=== PATIENT | female | born 1985 | race Caucasian/White ===

== ENCOUNTER 2016-08-06 18:22 | Emergency (ER) | payer OTHER ==
[~2016-08-06] VITALS: Ht 167.6 cm; Wt 72.7 kg
[~2016-08-06 18:22] MED LIST: AMPH20TA5 PO; KLO5T PO; LURA40TA3 PO; NITR100 PO; OXYC-181 PO; TRAM50TA2 PO
[2016-08-06 18:53] VITALS: BP 127/76; PULSE 85; RESP 18; O2SAT 98
[2016-08-06 19:33] LABS: BASOPHILS % (AUTO) 0.3 % (0-3); EOSINOPHILS % (AUTO) 8.3 % (0-5); MONOCYTES % (AUTO) 5.4 % (4-12); Mean Corpuscular Hemoglobin 28.6 pg (27.0-35.0); Mean Corpuscular Volume 85.7 fL (81-100); NEUTROPHILS % (AUTO) 55.7 % (40-74); Platelet Count 288 bil/L (150-400)
[2016-08-06 20:01] LABS: Magnesium 1.9 mg/dL (1.6-2.6)
[2016-08-06 20:54] LABS: APPEARANCE,URINE CLEAR (CLEAR,HAZY); COLOR,URINE YELLOW (YELLOW); OCCULT BLOOD,URINE LARGE (NEGATIVE); PH,URINE 5.5 (5.0-8.0); UROBILINOGEN,URINE NORMAL (NORMAL)
--- NOTE | 2016-08-06 21:23 | ED.REPORT ---
HPI-Abd Pain F Under 40 Date of Service Aug 06, 2016 ED Provider: Abbe Del Cid MD 31 y/o female with no pertinent hx presents to the ED complaining of abdominal pain after eating, onset 4 weeks ago, which radiates to her sides. Pt saw her PCP for an Ultrasound about a week ago and the result was normal. She also has an appointment with her PCP tomorrow but her pain significantly increased today. She reports she has had intermittent dark stool for about 3 weeks, diarrhea and constipation but denies hematuria and dysuria. Pt reports she is bleeding due to her IUD (Mirena) since last week. She is not taking any iron supplements. Pt has a family hx of cholelithiasis. Nursing Notes Stated Complaint: ABDOMINAL PAIN Chief Complaint: Female Abdominal Pain Nursing Notes Reviewed: Yes Allergies: Coded Allergies: acetaminophen (Verified Allergy, Unknown, 08/06/16) cefaclor (Verified Allergy, Unknown, 08/06/16) hydrocodone bitartrate (Verified Allergy, Unknown, 08/06/16) promethazine HCl (Verified Allergy, Unknown, 08/06/16) Scheduled Amphet Asp/Amphet/D-Amphet (Adderall) 20 Mg Tablet 20 MG PO BIDAC Clonazepam (Clonazepam) 0.5 Mg Tablet 1 TABLET PO TID Lurasidone (Latuda) 40 Mg Tablet 40 MG PO QPM with a meal Nitrofurantoin Monohyd/M-Cryst (MacroBid) 100 Mg Capsule 100 MG PO BID Oxycodone/APAP-Expunged Drug, Do Not Renew! (Percocet 10/325--Expunged Drug, Do Not Renew!) 1 Each Tablet 1 PO QID Scheduled PRN Tramadol (Tramadol) 50 Mg Tablet 50 MG PO QID PRN PRN For Pain General Time Seen by MD: 21:21 Chief Complaint Abdominal pain Hx Obtained From: Patient Arrived By: Walk-in Sudden in Onset?: No Onset Occurred: More than a week ago... (4 weeks) Context of Onset: Eating Symptom Duration: Intermittent Progression since Onset: Intermittent Location: : Abdomen upper Quality: Painful Radiation: : Epigastric Severity: Current: Mild Severity: Maximum: Mild Recent Healthcare: Recent doctor visit Similar Sx Previous: No Past Medical History Past Medical History ADHD Bipolar PTSD. Back pain. Past Surgical History Recent IUD removal Smoking History Never Smoker Social History Alcohol Use: "Social" Drug Use: Denies drug use Other Social History: Good social support Ambulatory Status Independent Review of Systems GI: Reports: Abdominal pain, Constipation, Diarrhea, Hematochezia Female: Reports: Dysuria, Hematuria Complete sys rev & neg: except as marked. Physical Exam Initial Vital Signs Vital Signs (First) Date Time Temp Pulse Resp B/P Pulse Ox O2 Delivery O2 Flow Rate FiO2 08/06/16 18:53 36.3 85 18 127/76 98 Room Air Initial VS: Reviewed, Vital signs normal Head / Eyes: Atraumatic, Normocephalic, PERRL ENT: Mucous membranes moist, Conjunctiva normal, No scleral icterus Neck: Supple, Non-tender, Full range of motion Extremities: Vascular intact, Neuro intact, No swelling, No tenderness Skin: Warm, Dry, No cyanosis Neurologic: Alert, Oriented, Nonfocal Psychiatric: Mood/affect normal, Behavior normal, Normal thought content General/Constitutional: Awake, Alert, No acute distress, Cooperative, Not toxic appearing Respiratory / Chest: Breath sounds NL, Breath sounds = bilat, No respiratory distress, No rales, No rhonchi, No wheezing Cardiovascular: Heart rate NL, Regular rhythm, Heart sounds NL, No gallop, No murmurs Abdomen: Atraumatic, Soft Tenderness/Guarding/Rebound: Positive: Tender RUQ..., Tender epigastric Back: Atraumatic, Full range of motion Rectum / Perineum: Atraumatic Guaiac negative. Non-tender. Interpretation & Diagnostics Lab Results Interpretation Result Diagram: 08/06/16192608/06/161926 Test 08/06/16 19:27 08/06/16 20:30 White Blood Count 9.1th/mm3 (3.8-10.1) Red Blood Count 4.55mil/mm3 (3.90-5.20) Hemoglobin 13.0g/dL (12.0-15.6) Hematocrit 39.0% (35.0-46.0) Mean Corpuscular Volume 85.7fL (81-100) Mean Corpuscular Hemoglobin 28.6pg (27.0-35.0) Mean Corpuscular Hemoglobin Concent 33.3% (32.0-37.0) Red Cell Distribution Width 14.1% (12.3-15.4) Platelet Count 288bil/L (150-400) Neutrophils (%) (Auto) 55.7% (40-74) Lymphocytes (%) (Auto) 30.2% (14-46) Monocytes (%) (Auto) 5.4% (4-12) Eosinophils (%) (Auto) 8.3% (0-5) Basophils (%) (Auto) 0.3% (0-3) Sodium Level 139mEq/L (134-144) Potassium Level 3.8mEq/L (3.5-5.2) Chloride Level 103mEq/L (97-108) Carbon Dioxide Level 23mmol/L (18-29) Blood Urea Nitrogen 15mg/dL (6-20) Creatinine 0.55mg/dL (0.57-1.00) Estimat Glomerular Filtration Rate 185mL/min (>59) Glucose Level 108mg/dL (60-99) Calcium Level 8.8mg/dL (8.5-10.1) Magnesium Level 1.9mg/dL (1.6-2.6) Total Bilirubin 0.2mg/dL (0.0-1.2) Aspartate Amino Transf (AST/SGOT) 19U/L (0-50) Alanine Aminotransferase (ALT/SGPT) 25U/L (0-32) Alkaline Phosphatase 68U/L (25-150) Total Protein 7.1g/dL (6.4-8.4) Albumin 4.2g/dL (3.4-5.0) Lipase 39U/L (13-60) Hold Wheatley Top Tube Received (Received) Urine Color Yellow (YELLOW) Urine Appearance Clear (CLEAR,HAZY) Urine pH 5.5 (5.0-8.0) Urine Specific [place] 1.025 (1.003-1.035) Urine Protein Negativemg/dL (NEG,TRACE) Urine Glucose (UA) Negativemg/dL (NEGATIVE) Urine Ketones Negativemg/dL (NEGATIVE) Urine Occult Blood Large (NEGATIVE) Urine Nitrite Negative (NEGATIVE) Urine Bilirubin Negative (NEGATIVE) Urine Urobilinogen Normalmg/dL (NORMAL) Urine Leukocyte Esterase Negative (NEGATIVE) Urine RBC 0-2/hpf (0-2) Urine WBC 0-5/hpf (0-5) Urine Epithelial Cells Many/hpf (NONE-MOD) Urine Crystals None seen (NONE SEEN) Urine Bacteria Moderate/hpf (NONE-FEW) Urine Hyaline Casts None/lpf (NONE) Urine Granular Casts None seen (NONE SEEN) Urine Waxy Casts None seen (NONE SEEN) Urine Red Blood Cell Casts None seen (NONE SEEN) Urine White Blood Cell Casts None seen (NONE SEEN) Urine Mucus None seen (None Seen) Urine Trichomonas None seen (NONE SEEN) Urine Yeast None (NONE SEEN) Urinalysis Comment None Urine Culture Reflexed Indicated Lab values outside NL range: no clinical significance. CT Abd / Pelvis Interpretation Conclusion: Trace pleural effusions. Trac cul-de-sac fluid. Adequately positioned IUD. Minimal mesenteric adenopathy. Small left ovarian follicle. Prominent uterine cervix, probably normal but correlate with exam. Signed Estella Ashraf M.D. 08/06/16 23:39 Study type: Abdom CT oral contrast Interpretation / Wet Read by: Interpret - Radiologist Re-Eval/Medical Decision Med Decision/Clinical Course 31-year-old female with abdominal pain. Labs are normal. H. pylori testing was done and is pending. Her CT scan showed some mesenteric adenopathy. Her symptoms are likely due to an enteritis picture although I cannot conclusively confirm this. She has a GI follow-up tomorrow. She will optimize antacid treatment. Source of Hx: Old records Re-Evaluation/Progress : Time of Eval: 00:03 Re-Evaluation/Progress Note: Rechecked pt. Discussed lab and imaging results and diagnosis. Informed the pt of the need for a stool sample. Counseled Regarding: Diagnosis, Lab results, Need for follow-up, When/why to return to ED Discharge & Departure Primary Impression: Abdominal pain Abdominal location: generalized Qualified Code: R10.84 - Generalized abdominal pain Additional Impressions: Enteritis Mesenteric adenitis Disposition: Home Discharge Condition All VS Reviewed: Yes Condition: Stable Patient Instructions: Acute Abdominal Pain (ED) Additional Instructions: This appears to be an enteritis, inflammation or infection of the small bowel. Labs are normal. The CT scan does show the area of enteritis and some swollen lymph nodes. Stool is needed to make the diagnosis of the type of infection, take a sample to your primary doctor's office tomorrow. Imodium as needed for the diarrhea. Referrals: OTHER,PHYSICIAN (PCP) (Family) Scribe Attestation Portions of this note were transcribed by Laura Andujar. I, , personally performed the history, physical exam and medical decision-making;I reviewed and confirmed the accuracy of the information in the transcribed note. Signed by Rafia Winter. 08/06/16 0153 Abbe Del Cid MD Aug 06, 2016 21:22 Laura Andujar Aug 06, 2016 21:31
[2016-08-06] MEDS ORDERED: 0.9% Sodium Chloride 1,000 ML IV ONE (21:40)
[2016-08-06] MEDS ORDERED: Iohexol 300 mg/mL 30 mL Inj PO ONE (21:40)
[2016-08-06] MEDS ORDERED: Pantoprazole 4 mg/mL 10 mL Inj IVPUSH ONE (21:40)
[2016-08-06 22:05] VITALS: BP 134/90; PULSE 80; RESP 20; O2SAT 100
[2016-08-07] VITALS: BP 119/73; PULSE 62; RESP 18; O2SAT 98
[2016-08-07 01:59] VITALS: BP 109/61; PULSE 67; RESP 16; O2SAT 97
--- NOTE | 2016-08-07 09:49 | DRSVH ---
PROCEDURE: CT ABDOMEN AND PELVIS WITH CONTRAST ([id number]) INDICATIONS: severe abd pain, (-) US, nl labs TECHNIQUE: After the administration of oral and intravenous contrast, 5 mm thick sections acquired from the diap hragms to the symphysis. 5 mm thick coronal and sagittal reformats were performed. For radiation do se reduction, the following was used: automated exposure control, adjustment of mA and/or kV accordi ng to patient size. COMPARISON: None. FINDINGS: Image quality: Excellent. ABDOMEN: Lung bases: Lung bases demonstrate trace effusions. Heart size is normal. Solid organs: Liver and spleen are normal in size and enhancement. Gallbladder is unremarkable. Bi liary system is non-dilated. Pancreas enhances normally. No adrenal nodules. Kidneys are normal in size and enhancement, without hydronephrosis. Peritoneum and bowel: Stomach, small bowel, and colon loops are normal in caliber and wall thickness . No free fluid or air. Nodes and vessels: No retroperitoneal or mesenteric adenopathy. Scattered subcentimeter mediastinal lymph nodes are present. Aorta and inferior vena cava are normal in caliber. Miscellaneous: No ventral hernias. PELVIS: Genitourinary: Bladder wall thickness is normal. Intrauterine device is present. Miscellaneous: No inguinal hernias or adenopathy. Bones: No suspicious bony lesions. No vertebral body compression fractures. IMPRESSION: 1. Scattered subcentimeter mediastinal lymph nodes, possibly related to mesenteric adenitis. Dictated by: Latesha Arnold M.D. on 08/07/2016 at 9:42 Approved by: Latesha Arnold M.D. on 08/07/2016 at 9:48
== END 2016-08-07 02:01 | disposition home or self-care (01) ==
LOC: SED 18:22
DX: K52.9 Noninfective gastroenteritis and colitis, unspecified (principal); I88.0 Nonspecific mesenteric lymphadenitis; Z88.1 Allergy status to other antibiotic agents; Z88.5 Allergy status to narcotic agent; Z88.6 Allergy status to analgesic agent; Z88.8 Allergy status to other drugs, medicaments and biological substances
CPT/HCPCS: 36415; 74177; 80053; 81000; 83690; 83735; 85025; 87086; 87088; 96374; 99285; J7030; Q9967